=== PATIENT | male | born 1970 | race Caucasian/White ===

== ENCOUNTER 2023-06-02 18:00 | Emergency (ER) | payer OTHER, SELFPAY ==
[2023-06-02 18:14] VITALS: BP 146/98; PULSE 83; RESP 16; TEMP 36.7; O2SAT 98; BMI 22.4
--- NOTE | 2023-06-02 18:29 | XRR_ITS ---
PROCEDURE INFORMATION: Exam: XR Abdomen Exam date and time: 06/02/2023 6:37 PM Age: 53 years old Clinical indication: Nausea; Additional info: N/v, abd pain TECHNIQUE: Imaging protocol: Radiologic exam of the abdomen. Views: Frontal supine view of the abdomen. 1 View. COMPARISON: No relevant prior studies available. FINDINGS: Gastrointestinal tract: Moderate stool is seen in the colon suggestive constipation. No evidence of bowel obstruction. Bones/joints: Unremarkable. XR/XR abdomen 1V* [id number] IMPRESSION: Moderate stool is seen in the colon suggestive constipation. No evidence of bowel obstruction.
[2023-06-02] MEDS: ondansetron 4 MG Tablet PO (18:44)
--- NOTE | 2023-06-02 18:49 | ED_ITS ---
HPI - Abdominal Pain General: Chief Complaint: Abdominal Pain Stated Complaint: [facility] Time Seen by Provider: 06/02/23 18:21 History of Present Illness: Patient presents to the ER with having stomach pain and a sour stomach for about 10 days. Patient has had tight. Patient felt nauseous but has never vomited. Patient does drink lots of water and keeps water down with no problem. But does not feel like eating food. [facility] and they suggested he come here for further evaluation and treatment. Patient said he is healthy with no allergies takes no medicines and has never had any abdominal pain before. There are no people in his house that are sick with similar symptoms. Patient is still been able to do everything as he normally does on a daily basis. Review of Systems General: Reports: 10 or more systems reviewed and unremarkable except in HPI and below Physical Exam Const: COMMON NORMALS: no acute distress, average body habitus, patient oriented x3, no limitations, healthy appearing, alert and well nourished HENMT: COMMON NORMALS: normocephalic, atraumatic, hearing grossly normal bilaterally, Normal external nose present and moist oral mucous membranes HEAD & SCALP: normocephalic and atraumatic NOSE: Normal external nose present Neck/C-Spine: COMMON NORMALS: full ROM, no lymphadenopathy, supple, no meningeal signs, no JVD and Thyroid normal THYROID: Thyroid normal Chest: COMMONS NORMALS: normal inspection of the chest and normal palpation of entire chest wall Resp: COMMON NORMALS: normal respiratory effort, No retractions, No use of accessory muscles and clear to auscultation bilaterally AUSCULTATION: clear to auscultation bilaterally Cardio: COMMON NORMALS: no JVD, regular rate, regular rhythm, S1 normal heart sound present, S2 normal heart sound present, No gallops present (Cardio), No clicks present (Cardio), No murmurs present (Cardio) and No rub (Cardio) RATE: regular rate RHYTHM: regular rhythm HEART SOUNDS: S1 normal heart sound present and S2 normal heart sound present GI: COMMON NORMALS: Normal to inspection, nondistended, normoactive bowel sounds present, Soft to palpation, non-tender (Mildly diffusely tender no rebound guarding rigidity), No hepatosplenomegaly present, no masses and no bruits PALPATION: Yes Soft to palpation and Yes No hepatosplenomegaly present : COMMON NORMALS: Yes no CVA tenderness BLADDER/KIDNEY EXAM: Yes no CVA tenderness Back/Pelvis: COMMON NORMALS: no CVA tenderness Neuro: COMMON NORMALS: patient oriented x3 SENSORIUM/ORIENTATION: Yes alert MENINGEAL SIGNS: Yes no meningeal signs Course Vital Signs: Vital signs: Vital Signs Temperature 98.0 F 06/02/23 18:14 Pulse Rate 83 06/02/23 18:14 Respiratory Rate 16 06/02/23 18:14 Blood Pressure 146/98 06/02/23 18:14 Pulse Oximetry 98 06/02/23 18:14 Oxygen Delivery Me thod Room Air 06/02/23 18:14 MDM - Abdominal Pain Medical Decision Making Presents ER with a sour stomach nausea. Been going on for 10 days is not getting any worse. Physical exam was performed which was essentially benign. X-ray was obtained which showed moderate stool in the colon suggestive of constipation. Patient was given a Zofran which seemed to help with the nausea. These findings was discussed with the patient in detail and suggested he take [id number] Colace to help with his bowels. And continue to push fluids. Patient should follow-up with his family practice doctor in the next 7 days as needed. Differential Diagnosis Likely abdominal pain; Unlikely acute appendicitis, calculus of kidney, constipation, diverticulitis, endometriosis, pancreatitis or small bowel obstruction Medical Records I reviewed the patient's medical records. Lab Data I reviewed the patient's lab results. Labs/Radiology: Radiology Impressions Abdomen X-Ray 06/02/23 18:29 IMPRESSION: Moderate stool is seen in the colon suggestive constipation. No evidence of bowel obstruction. Discharge Plan Discharge Patient Disposition: Home Clinical Impression: Constipation Qualifiers: Constipation type: unspecified constipation type Qualified Code(s): K59.00 - Constipation, unspecified Condition: Stable Discharge Orders: Discharge ED (Routine); Ordered 06/02/23 Ordered By: [place] Patient Instructions: Constipation (ED) Activity Restrictions/Additional Instructions: Please get your bottle of [id number] Colace. Please take as directed. Please drink plenty of water as this helps with constipation. Please follow-up with your family practice doctor in 7 to 10 days as needed. Coding Level of Care Code ED Work And Family Life Consultant for Yuki Castano
--- NOTE | 2023-06-05 11:36 | DCPLANNER ---
water/wastewater project manager called patient due to no primary care physician - patient declines at this time.
== END 2023-06-02 19:52 | disposition home or self-care (01) ==
PROVIDERS: Emergency Provider Emergency Medicine
DX: K59.00 Constipation, unspecified (principal)
CPT/HCPCS: 74018; 99283; Q0162